=== PATIENT | male | born 1970 | race Caucasian/White ===

== ENCOUNTER 2019-12-13 10:18 | Emergency (ER) | payer OTHER ==
[~2019-12-13] VITALS: Ht 177.8 cm; Wt 79.4 kg
[2019-12-13] MEDS ORDERED: TESSALON PERLE100 M1 PO (12:10)
[2019-12-13] MEDS ORDERED: AIRBORNE EFFER1 EACH PO (12:10)
[2019-12-13] MEDS ORDERED: MUCINEX DM ER1 EAC1 PO (12:10)
== END 2019-12-13 12:23 | disposition home or self-care (01) ==
LOC: ER 10:18
DX: J06.9 Acute upper respiratory infection, unspecified (principal); R07.89 Other chest pain

== ENCOUNTER 2024-04-03 22:14 | Emergency (ER) | payer OTHER ==
[~2024-04-03] VITALS: Ht 177.8 cm; Wt 72.6 kg
[~2024-04-03 22:14] MED LIST: AIRBORNE EFFER1 EACH PO; MUCINEX DM ER1 EAC1 PO; TESSALON PERLE100 M1 PO
[2024-04-04] MEDS ORDERED: HYOSCYAMINE SULFATE 0.125 MG TAB.SUBL SL STA (00:40)
[2024-04-04] MEDS ORDERED: PROMETHAZINE HCL 50 MG/ML AMPUL IM STA (00:40)
[2024-04-04] MEDS ORDERED: FAMOTIDINE/PF 20 MG/2 ML VIAL IV PUSH STA (00:41)
[2024-04-04] MEDS ORDERED: 0.9 % SODIUM CHLORIDE 1,000 ML IV ONE (00:45)
[2024-04-04] MEDS ORDERED: HYOSCYAMINE SULFATE 0.125 MG TAB.SUBL ONE (01:29)
[2024-04-04] MEDS ORDERED: PROMETHAZINE HCL 50 MG/ML AMPUL IM ONE (01:29)
[2024-04-04] MEDS ORDERED: FAMOtidine 200mg/20ml VIAL ONE (01:30)
[2024-04-04 02:02] LABS: HEMATOCRIT 43.1 % (39.0-48.0); HEMOGLOBIN 14.8 g/dL (13-16.00); MEAN CELL VOLUME 82.9 fL (80.0-100.00); MEAN CORPUSCULAR HEMOGLOBIN 28.5 pg (27.00-32.0); MEAN CORPUSCULAR HGB CONC 34.4 g/dl (32.0-36.0); PLATELET COUNT 168 K/uL (150-450); RED CELL DISTRIBUTION WIDTH 13.7 % (11.5-14.5)
[2024-04-04 02:16] LABS: CALCIUM 8.9 mg/dL (8.5-10.1); CREATININE SERUM 0.98 mg/dL (0.70-1.30); GFR 80.32; POTASSIUM 4.5 mEq/L (3.5-5.1)
[2024-04-04] MEDS ORDERED: PEPCID40 MG PO (05:17)
[2024-04-04] MEDS ORDERED: ZOFRAN8 MG PO (05:17)
== END 2024-04-04 05:43 | disposition home or self-care (01) ==
LOC: ER 22:14
PROVIDERS: General Practice
DX: R11.10 Vomiting, unspecified (principal); Z88.0 Allergy status to penicillin